=== PATIENT | male | born 1990 | race Two or more races ===

== ENCOUNTER 2017-01-21 06:56 | Emergency (ER) | payer BC ==
[~2017-01-21] VITALS: Ht 190.5 cm; Wt 81.6 kg
[~2017-01-21 06:56] MED LIST: TRAM50TA2 PO
[2017-01-21 07:40] VITALS: BP 132/66
== END 2017-01-21 07:57 | disposition home or self-care (01) ==
LOC: ER 06:56
DX: L02.222 Furuncle of back [any part, except buttock and flank] (principal); Z79.899 Other long term (current) drug therapy
CPT/HCPCS: 71020